=== PATIENT | female | born 1990 | race African-American/Black ===

== ENCOUNTER 2021-09-15 21:54 | Emergency (ER) | payer OTHER ==
[2021-09-15] MEDS ORDERED: IBUPROFEN 600 MG TABLET PO STA (23:48)
--- NOTE | 2021-09-16 00:16 | ED Physician Documentation ---
History of Present Illness - Stated complaint Stated Complaint: L LEG PX - Chief complaint Chief Complaint: General - History obtained from History obtained from: Patient - Additonal information Additional information: The patient comes emergency department chief complaint of left knee pain and body aches and "feeling hot". She states the left knee pain started about 5 days ago. She did not have any injury at that time, though she did continue running which she had recently started doing. This did seem to make the pain worse. She describes the pain as being the inferomedial aspect of her left knee, not involving the patella. She states that a couple of days after the knee pain started, she began [place] and is body aches. She states she was at work and felt very hot. No chills. She denies any respiratory symptoms or GI symptoms. No dysuria. The patient states that she has not otherwise felt sick. Patient states she has noticed little puffiness over the area of pain in her knee, but has been able to bear weight okay though this does make it hurt a little worse. She is otherwise healthy. No other complaints at this time. Review of Systems Ten Systems: 10 systems reviewed and negative Constitutional: reports: Fever (subjective), Myalgias Eyes: reports: Reviewed and negative Ears: reports: Reviewed and negative Nose: reports: Reviewed and negative Throat: reports: Reviewed and negative Cardiac: reports: Reviewed and negative Respiratory: reports: Reviewed and negative GI: reports: Reviewed and negative : reports: Reviewed and negative Skin: reports: Reviewed and negative Musculoskeletal: reports: Joint pain Neurologic: reports: Reviewed and negative Psychiatric: reports: Reviewed and negative Endocrine: reports: Reviewed and negative Immunocompromised: reports: Reviewed and negative PD PAST MEDICAL HISTORY - Past Medical History Past Medical History: No - Past Surgical History Past Surgical History: No - Allergies Allergies/Adverse Reactions: Allergies Allergy/AdvReac Type Severity Reaction Status Date / Time No Known Drug Allergies Allergy Verified 09/15/21 22:09 - Social History Does the pt smoke?: No Smoking Status: Never smoker Does the pt drink ETOH?: No Does the pt have substance abuse?: No - Immunizations Immunizations are current?: Yes PD ED PE NORMAL - Vitals Vital signs reviewed: Yes - General General: Alert and oriented X 3, No acute distress, Well developed/nourished - HEENT HEENT: Atraumatic, PERRL, EOMI, Moist mucous membranes - Neck Neck: Supple, no meningeal sign - Cardiac Cardiac: RRR, No murmur, Strong equal pulses - Respiratory Respiratory: No respiratory distress, Clear bilaterally - Derm Derm: Normal color, Warm and dry, No rash - Extremities Extremities: No deformity, Other (Mild tenderness palpation over anteromedial tibia Proximally, with slight edema. No tenderness or swelling over the patella. No joint line tenderness. Full extension, nearly full flexion. No crepitus.) - Neuro Neuro: Alert and oriented X 3 - Psych Psych: Normal mood, Normal affect Results - Vitals Vitals: Vital Signs - 24 hr 09/15/21 09/16/21 09/16/21 22:06 00:23 00:27 Temperature 36.6 C 36.7 C Heart Rate 69 68 55 L Respiratory 18 18 17 Rate Blood Pressure 130/98 H 129/81 H 131/85 H O2 Saturation 100 99 100 Oxygen O2 Source Nasal cannula - Labs Labs: Laboratory Tests 09/15/21 23:33 Nasal Adenovirus (PCR) NOT DETECTED Nasal B. parapertussis DNA (PCR) NOT DETECTED Nasal Coronavir 229E PCR NOT DETECTED Nasal Coronavir HKU1 PCR NOT DETECTED Nasal Coronavir NL63 PCR NOT DETECTED Nasal Coronavir OC43 PCR NOT DETECTED Nasal Enterovir/Rhinovir PCR NOT DETECTED Nasal Influenza B PCR NOT DETECTED Nasal Influenza A PCR NOT DETECTED Nasal Parainfluen 1 PCR NOT DETECTED Nasal Parainfluen 2 PCR NOT DETECTED Nasal Parainfluen 3 PCR NOT DETECTED Nasal Parainfluen 4 PCR NOT DETECTED Nasal RSV (PCR) NOT DETECTED Nasal B.pertussis DNA PCR NOT DETECTED Nasal C.pneumoniae (PCR) NOT DETECTED Flako Human Metapneumo PCR NOT DETECTED Nasal M.pneumoniae (PCR) NOT DETECTED Nasal SARS-CoV-2 (PCR) NOT DETECTED - Rads (name of study) Left knee x-ray Radiology: Final report received, EMP read indepedently (Negative), See rad report PD MEDICAL DECISION MAKING - ED course Complexity details: reviewed results, re-evaluated patient, considered differential, d/w patient, d/w family ED course: Patient was worked up in the left knee x-ray series, which was negative. A viral panel was sent and is pending at this time. We have discussed the patient will be called with any significant positive results. We have discussed symptomatic management at home. The patient's been given a dose of ibuprofen here. Departure - Departure Disposition: 01 Home, Self Care Clinical Impression: Viral syndrome Knee pain Qualifiers: Chronicity: acute Laterality: left Qualified Code(s): M25.562 - Pain in left knee Condition: Stable Instructions: ED Knee Pain [facility]O, ED Viral Syndrome Comments: Your knee x-ray looks good. Most likely, the pain and mild swelling is from irritation of the attachment of one of your ligaments. It is not clear exactly why you have had body aches and been feeling hot, but it is very possible that you have picked up one of the many viruses that are going around right now. We have sent a viral panel to test for some the more common of these, and this is pending at this time. You will be notified of any positive results. Both your knee pain and the viral symptoms should go away on their own in the next several days to week. Please follow-up with your primary care physician as needed. You may take ibuprofen and/or Tylenol if needed for the discomfort. Please avoid running until your knee is feeling better. Discharge Date/Time: 09/16/21 00:28
[2021-09-16 00:28] VITALS: BP 131/85
[2021-09-16 00:29] LABS: B. PARAPERTUSSIS- RESP PCR PAN NOT DETECTED; B. PERTUSSIS- RESP PCR PANEL NOT DETECTED; C. PNEUMONIAE- RESP PCR PANEL NOT DETECTED; CORONAVIRUS 229E-RESP PCR NOT DETECTED; CORONAVIRUS HKU1-RESP PCR NOT DETECTED; CORONAVIRUS NL63-RESP PCR NOT DETECTED; CORONAVIRUS OC43-RESP PCR NOT DETECTED; HUMAN METAPNEUMOVIRUS NOT DETECTED; INFLUENZA A- RESP PCR PANEL NOT DETECTED; INFLUENZA B - RESP PCR PANEL NOT DETECTED; M. PNEUMONIAE- RESP PCR PANEL NOT DETECTED; PARAINFLUENZA VIRUS 1 NOT DETECTED; PARAINFLUENZA VIRUS 2 NOT DETECTED; PARAINFLUENZA VIRUS 3 NOT DETECTED; PARAINFLUENZA VIRUS 4 NOT DETECTED; RHINOVIRUS/ENTEROVIRUS NOT DETECTED; RSV- RESP PCR PANEL NOT DETECTED; SARS-CoV-2 -RESP PCR PANEL NOT DETECTED
--- NOTE | 2021-09-16 01:28 | XRAY Report ---
PROCEDURE: Knee 3 View LT INDICATIONS: pain/swelling TECHNIQUE: 3 views of the left knee were acquired. COMPARISON: None. FINDINGS: Bones: No fractures or dislocations. No suspicious bony lesions. Soft tissues: No joint effusion. No suspicious soft tissue calcifications. IMPRESSION: 1. No fracture or dislocation. Reviewed by: Sam Alberts MD on 09/16/2021 1:27 AM PDT Approved by: Sam Alberts MD on 09/16/2021 1:27 AM PDT Station ID: [id number]
== END 2021-09-16 00:28 | disposition home or self-care (01) ==
LOC: ED 21:54
DX: B34.9 Viral infection, unspecified (principal); M25.562 Pain in left knee; Z20.822 Contact with and (suspected) exposure to COVID-19
CPT/HCPCS: 73562; 87633; 99282; 99284; A9270